=== PATIENT | male | born 1975 | race Caucasian/White ===

== ENCOUNTER 2016-11-22 11:31 | Outpatient (RCR) | payer OTHER | END 2017-02-06 13:12 | disposition home or self-care (01) | LOC: OT 11:31 | DX: M25.532 Pain in left wrist (principal); M25.531 Pain in right wrist; G62.9 Polyneuropathy, unspecified ==

== ENCOUNTER 2021-08-15 12:38 | Emergency (ER) | payer OTHER ==
[2021-08-15 12:40] VITALS: BP 135/97
== END 2021-08-15 13:31 | disposition home or self-care (01) ==
LOC: ED 12:38
DX: S61.012A Laceration without foreign body of left thumb without damage to nail, initial encounter (principal); Z23 Encounter for immunization; W26.8XXA Contact with other sharp object(s), not elsewhere classified, initial encounter; Y99.0 Civilian activity done for income or pay
CPT/HCPCS: 90715

== ENCOUNTER → 2023-06-25 | Day surgery (SDC) | payer BC ==
[~2023-06-25] MED LIST: KETOROLAC10 MG PO
== END | disposition home or self-care (01) ==
LOC: MSO 09:04
DX: Z12.11 Encounter for screening for malignant neoplasm of colon (principal); E66.9 Obesity, unspecified
CPT/HCPCS: 00812; J2704; J3010; J7120